=== PATIENT | male | born 1950 | race Caucasian/White ===

== ENCOUNTER 2018-08-23 22:49 | Emergency (ER) | payer OTHER ==
[~2018-08-23] VITALS: Ht 172.7 cm; Wt 72.7 kg
[2018-08-23 23:50] LABS: BASOPHILS % (AUTO) 1.1 % (0.0-2.0); EOSINOPHILS % (AUTO) 0.6 % (1.0-6.0); HEMATOCRIT 43.9 % (41-53); HEMOGLOBIN 14.5 g/dL (13.5-17.5); LYMPHOCYTES # (AUTO) 1.5 K/uL (1.0-4.8); LYMPHOCYTES % (AUTO) 19.3 % (22.0-44.0); MEAN CORPUSCULAR HEMOGLOBIN 29.9 pg (26.0-34.0); MEAN CORPUSCULAR HGB CONC 32.9 G/dL (31.0-37.0); MEAN CORPUSCULAR VOLUME 91 fL (80-100); MONOCYTES # (AUTO) 0.8 K/uL (0.1-1.0); MONOCYTES % (AUTO) 10.2 % (2.0-9.0); NEUTROPHILS # (AUTO) 5.4 K/uL (1.8-7.7); NEUTROPHILS % (AUTO) 68.8 % (40.0-70.0); PLATELET COUNT (AUTO) 207 K/uL (150-450); RED BLOOD CELL COUNT(AUTO) 4.84 MIL/uL (4.50-5.90); RED CELL DISTRIBUTION WIDTH 14.8 % (11.5-14.5)
[2018-08-24] MEDS ORDERED: MORPHINE SULFATE 2 MG/ML SYRINGE IVP ONE
[2018-08-24] MEDS ORDERED: ONDANSETRON HCL 4 MG/2 ML VIAL IVP ONE
[2018-08-24] MEDS ORDERED: METOPROLOL TARTRATE 5 MG/5 ML VIAL IVP ONE
[2018-08-24] MEDS ORDERED: FAMOTIDINE 10 MG/ML 2 ML VIAL IVP ONE
[2018-08-24 00:01] LABS: CALCIUM, TOTAL 9.1 mg/dL (8.8-10.5); CREATININE 1.55 mg/dL (0.60-1.30); POTASSIUM 3.7 mmol/L (3.5-5.1)
[2018-08-24 00:07] LABS: ALBUMIN 3.1 g/dL (3.4-5.0); BILIRUBIN,TOTAL 1.4 mg/dL (0.1-1.0); TOTAL PROTEIN, SERUM 6.3 g/dL (6.4-8.2)
[2018-08-24] MEDS ORDERED: CloNIDine HCL 0.2 MG TABLET PO ONE (01:00)
[2018-08-24] MEDS ORDERED: FUROSEMIDE 40 MG/4 ML VIAL IVP ONE (02:00)
[2018-08-24] MEDS ORDERED: MethylPREDNISolone SOD SUCC 125 MG/2 ML VIAL IVP ONE (03:45)
[2018-08-24] MEDS ORDERED: NITROGLYCERIN 2% (1 GM=INCH) PACKET TP ONE (03:45)
[2018-08-24 04:08] LABS: APPEARANCE,URINE CLEAR (CLEAR); BILIRUBIN,URINE NEGATIVE (NEGATIVE); GLUCOSE, URINE (UA) NEGATIVE (NEGATIVE); KETONES,URINE NEGATIVE (NEGATIVE); LEUKOCYTE ESTERASE ,URINE NEGATIVE (NEGATIVE); NITRATE,URINE NEGATIVE (NEGATIVE); OCCULT BLOOD,URINE NEGATIVE (NEGATIVE); PROTEIN,URINE TRACE (NEGATIVE); UROBILINOGEN,URINE 0.2 mg/dL (<=1.0)
[2018-08-24 05:34] VITALS: BP 154/110
== END 2018-08-24 06:21 | disposition short-term general hospital (02) ==
LOC: EMS 22:52
DX: R10.84 Generalized abdominal pain (principal); R79.89 Other specified abnormal findings of blood chemistry; I11.0 Hypertensive heart disease with heart failure; I50.9 Heart failure, unspecified; N28.9 Disorder of kidney and ureter, unspecified; J44.9 Chronic obstructive pulmonary disease, unspecified; F41.9 Anxiety disorder, unspecified; I48.91 Unspecified atrial fibrillation; F17.210 Nicotine dependence, cigarettes, uncomplicated
CPT/HCPCS: 36415; 71045; 80053; 81003; 82271; 83690; 83880; 84484; 85025; 93005; 96374; 96375; 99285; J1940; J2270; J2405; J2930; J3490 ×2; 82270